=== PATIENT | female | born 1965 | race Caucasian/White ===

== ENCOUNTER 2017-11-18 18:00 | Emergency (ER) | payer OTHER ==
[~2017-11-18] VITALS: Ht 157.5 cm; Wt 76.2 kg
[2017-11-18 18:09] VITALS: TEMP 37.3; Ht 157.5 cm; Wt 76.2 kg
--- NOTE | 2017-11-18 18:29 | EMERGENCY ROOM VISIT NOTE ---
History Report prepared by Dylan: Gilbert Islas Under the Supervision of: Dr. Jerald Murphy M.D. First contact with patient: 18:15 Chief Complaint: ARM PAIN Stated Complaint: LEFT ARM/SHOULDER PAIN History of Present Illness The patient is a 52 year old white female with no past medical history who presents to the Emergency Room with complaints of persistent pain in the left shoulder that she has been experiencing for the past two weeks. She states that the pain is "sharp" the majority of the time. The patient mentioned that she was experiencing general cold symptoms two weeks ago, and her shoulder pain has persisted since. Her shoulder pain radiates up into the left side of her neck, and down into her left elbow. Sitting up and allowing the left arm to hand down worsens the pain, and laying flat improves the pain. She is a hairstylist, and works with her hands all day. The patient also made note that she has been having some shortness of breath recently. She noted that she is not able to "Catch her breath through her nose." This dyspnea is not worsened or influenced by waking around. Source of History: patient Onset: Two weeks Position: shoulder (left) Quality: sharp Timing: other (Persistent) Modifying Factors (Worsening): other (Sitting up) Modifying Factors (Relieving): other (Laying flat) Associated Symptoms: + SOB Review of Systems See HPI for pertinent positives and negatives. A total of ten systems were reviewed and were otherwise negative. Past Medical & Surgical Medical Problems: (1) Restless leg syndrome Restless leg syndrome Family History Diabetes mellitus Heart disease Hypertension Kidney disease Kidney stones Lung disease Social History Smoking Status: Former Smoker Drug Use: none Marital Status: Housing Status: lives with significant other Occupation Status: employed Current/Historical Medications Scheduled Ropinirole (Requip), 2 MG PO DAILY Tramadol Hcl (Ultram), 50 MG PO Q8H Allergies Coded Allergies: Diphenhydramine (Unverified Adverse Reaction, Intermediate, REVERSE EFFECTS, 11/18/17) Physical Exam Vital Signs Date Time Temp Pulse Resp B/P (MAP) Pulse Ox O2 Delivery O2 Flow Rate FiO2 11/18/17 20:09 80 18 144/100 97 Room Air 11/18/17 19:15 66 11/18/17 18:57 98 11/18/17 18:09 37.3 83 17 152/90 98 Room Air Physical Exam GENERAL: Awake, alert, well-appearing, NAD HENT: Normocephalic, atraumatic. EYES: Normal conjunctiva. Sclera non-icteric. NECK: Supple. No nuchal rigidity. FROM. RESPIRATORY: CTAB, no rhonchi, wheezing, crackles CARDIAC: RRR, no MRG ABDOMEN: Soft, NTND, BS+ MSK: No chest wall TTP, no LE edema. There is TTP at the AC joint. There is mild TTP at the proximal bicep tendon. No change in discomfort with internal/ external rotation or Abduction/adduction. Negative empty can test. There was no erythema or edema of the joint. NEURO: 5/5 strength, good radial pulse, no sensory deficit. GCS 15, CN 2-12 intact, moves all 4s on command SKIN: No rash or jaundice noted. Medical Decision & Procedures ER Provider Diagnostic Interpretation: Radiology results as stated below per my review and radiologist interpretation: SINGLE VIEW CHEST CLINICAL HISTORY: Atypical chest pain. FINDINGS: An AP, portable, upright chest radiograph is obtained. No prior studies are available for comparison at the time of dictation. The examination is degraded by portable technique and patient rotation. The cardiomediastinal silhouette is top normal for projection. The lungs and pleural spaces are clear. No pneumothorax is seen. The skeletal structures appear osteopenic. The bony thorax is grossly intact. IMPRESSION: No active disease in the chest. Electronically signed by: Blair Verdin M.D. 11/18/2017 7:30 PM Dictated Date/Time: 11/18/2017 7:29 PM LEFT SHOULDER 3 VIEWS CLINICAL HISTORY: Left shoulder pain. FINDINGS: 3 views of the left shoulder are obtained. No prior studies are available for comparison at the time of dictation. The skeletal structures are osteopenic. No fracture or dislocation is seen. Mild productive degenerative change is identified at the acromioclavicular joint. The overlying soft tissues are within normal limits. The imaged left upper lobe lung parenchyma appears clear. IMPRESSION: No acute bony abnormality is seen in the left shoulder. Electronically signed by: Blair Verdin M.D. 11/18/2017 7:31 PM Dictated Date/Time: 11/18/2017 7:30 PM Laboratory Results 11/18/17 19:00 Red Blood Count 4.47, Mean Corpuscular Volume 88.6, Mean Corpuscular Hemoglobin 30.0, Mean Corpuscular Hemoglobin Concent 33.8, Mean Platelet Volume 10.1, Neutrophils (%) (Auto) 51.1, Lymphocytes (%) (Auto) 41.3, Monocytes (%) (Auto) 6.1, Eosinophils (%) (Auto) 1.3, Basophils (%) (Auto) 0.1, Neutrophils # (Auto) 3.66, Lymphocytes # (Auto) 2.96, Monocytes # (Auto) 0.44, Eosinophils # (Auto) 0.09, Basophils # (Auto) 0.01 11/18/17 19:00 Test 11/18/17 19:00 White Blood Count 7.17 K/uL (4.8-10.8) Red Blood Count 4.47 M/uL (4.2-5.4) Hemoglobin 13.4 g/dL (12.0-16.0) Hematocrit 39.6 % (37-47) Mean Corpuscular Volume 88.6 fL (80-100) Mean Corpuscular Hemoglobin 30.0 pg (25-34) Mean Corpuscular Hemoglobin Concent 33.8 g/dl (32-36) Platelet Count 235 K/uL (130-400) Mean Platelet Volume 10.1 fL (7.4-10.4) Neutrophils (%) (Auto) 51.1 % Lymphocytes (%) (Auto) 41.3 % Monocytes (%) (Auto) 6.1 % Eosinophils (%) (Auto) 1.3 % Basophils (%) (Auto) 0.1 % Neutrophils # (Auto) 3.66 K/uL (1.4-6.5) Lymphocytes # (Auto) 2.96 K/uL (1.2-3.4) Monocytes # (Auto) 0.44 K/uL (0.11-0.59) Eosinophils # (Auto) 0.09 K/uL (0-0.5) Basophils # (Auto) 0.01 K/uL (0-0.2) RDW Standard Deviation 43.7 fL (36.4-46.3) RDW Coefficient of Variation 13.5 % (11.5-14.5) Immature Granulocyte % (Auto) 0.1 % Immature Granulocyte # (Auto) 0.01 K/uL (0.00-0.02) Prothrombin Time 10.0 SECONDS (9.0-12.0) Prothromb Time International Ratio 1.0 (0.9-1.1) Activated Partial Thromboplast Time 24.2 SECONDS (21.0-31.0) Partial Thromboplastin Ratio 0.9 Anion Gap 10.0 mmol/L (3-11) Est Creatinine Clear Calc Drug Dose 92.8 ml/min Estimated GFR () 116.3 Estimated GFR (Non- 100.4 BUN/Creatinine Ratio 20.2 (10-20) Calcium Level 9.3 mg/dl (8.5-10.1) Troponin I < 0.015 ng/ml (0-0.045) Laboratory results reviewed by me Medications Administered Medications (Trade) Dose Ordered Sig/Mary Route Start Time Stop Time Status Last Admin Dose Admin Ketorolac Tromethamine (Toradol Inj) 30 mg NOW STAT IV 11/18/17 18:34 11/18/17 18:37 DC 11/18/17 19:10 30 MG Acetaminophen (Tylenol Tab) 1,000 mg NOW STAT PO 11/18/17 18:34 11/18/17 18:37 DC 11/18/17 19:09 1,000 MG Cyclobenzaprine HCl (Flexeril Tab) 5 mg ONE STAT PO 11/18/17 18:34 11/18/17 18:37 DC 11/18/17 19:08 5 MG ECG Indication: back/shoulder pain Rate (beats per minute): 80 Rhythm: normal sinus Findings: other (Normal Intervals, normal axis, no STS changes or TWI) ED Course 1817: The patient was evaluated in room C10. A complete history and physical exam was performed. 2011: I checked on the patient at this time. 2035: I reevaluated the patient. Discussed results and discharge instructions: She verbalized understanding and agreement. The patient is ready for discharge. Medical Decision The patient is a 52 year old white female with no past medical history who presents to the Emergency Room with complaints of persistent pain in the left shoulder that she has been experiencing for the past two weeks. Differential diagnosis includes fracture, dislocation, neurovascular compromise , compartment syndrome, soft tissue injury, as well as others were entertained. Patient was seen and evaluated the bedside. Patient had been complaining of some left sided shoulder pain that been ongoing for some time. Patient had described that she is right-handed and denies any recent trauma. Patient states she had tried intermittent Motrin and Tylenol without much relief. On exam the patient has no swelling does not show any asymmetry. Patient did have some mild pain at the before meals joint as well as the proximal biceps tendon. Patient is neurovascularly intact distally. Patient did have blood work that was completed along with an EKG troponin, chest x-ray and shoulder film. EKG and troponin were added to rule out possible atypical chest pain. Patient's EKG is nonischemic and the patient had a negative troponin. Patient heart score less than 4 less likely ACS may follow up as an outpatient. Patient did discuss some shortness of breath. The patient is a PE RC of 1 given her age and is a Wells of 0. Less likely PE. Patient did have a negative chest film. I believe this may be related to some anxiety as the patient is very fixated on her shoulder pain. Patient states that after symptom control medications the patient was feeling improved. Patient was told that she may continue take his medications and follow with her PCP. If patient has persistent shoulder pain she needs to discuss further management with her PCP which may include physical therapy, exercise, injections, and/or follow up with orthopedist for more advanced imaging and possible surgical consideration. Patient was deemed suitable for outpatient follow-up and treatment at this time. Patient was given strict follow-up, discharge, and return precautions. All questions were answered. Patient was deemed suitable for outpatient follow-up at this time. Patient agreed with the plan of care and was safely discharged home. The chart was completed utilizing [employer] Speech voice recognition software. Grammatical errors, random word insertions, pronoun errors, and incomplete sentences are an occasional consequence of this system due to software limitations, ambient noise, and hardware issues. Any formal questions or concerns about the content, text, or information contained within the body of this dictation should be directly addressed to the physician for clarification. Impression Primary Impression: Shoulder pain, left Additional Impression: Tendonitis Scribe Attestation The scribe's documentation has been prepared under my direction and personally reviewed by me in its entirety. I confirm that the note above accurately reflects all work, treatment, procedures, and medical decision making performed by me. Departure Information Dispostion Home / Self-Care Prescriptions Tramadol Hcl (ULTRAM) 50 Mg Tab 50 MG PO Q8H, #12 TAB PRN PAIN Prov: Jerald Murphy M.D. 11/18/17 Referrals No Doctor, Assigned (PCP) Patient Instructions ED Shoulder Pain Stella DIAZ [facility] Additional Instructions Please return to the emergency department if you have worsening or recurrent symptoms not amenable to at-home treatment. Please call for a follow-up appointment with her primary care physician. Please take your medications as prescribed. If you have other concerns and/or complaints please feel free to also call your primary care physician's office or return the ED for further evaluation, management, and treatment. You may take 800 mg Ibuprofen every 6 hours as needed for pain with food. Consider taking a Zantac or Pepcid to help avoid GI upset. You may take tylenol 1000 mg every 6 hours as needed for pain. You may take motrin and tylenol separately or at the same time. If you are still having discomfort you may take the tramadol. Only take if you do not need to be fully alert as it may cause some sleepiness. You may apply moist heat and/or ice to the area. You may also consider Icy Hot or BenGay to the area. Please follow-up with your primary care physician to discuss further evaluation and treatment. Take your medications as prescribed. You have been examined and treated today on an emergency basis only. This is not a substitute for, or an effort to provide, complete comprehensive medical care. It is impossible to recognize and treat all injuries or illnesses in a single emergency department visit. It is therefore important that you follow up closely with [facility], your PCP, and/or your specialist(s). Call as soon as possible for an appointment. Thank you for your time and consideration. I look forward to speaking with you again soon. Please don't hesitate to call us if you have any questions. Problem Qualifiers Primary Impression: Shoulder pain, left Chronicity: acute Qualified Codes: M25.512 - Pain in left shoulder
[2017-11-18] MEDS ORDERED: KETOROLAC TROMETHAMINE 30 MG/ML VIAL IV STA (18:34)
[2017-11-18] MEDS ORDERED: CYCLOBENZAPRINE HCL 5 MG TAB PO STA (18:34)
[2017-11-18] MEDS ORDERED: ACETAMINOPHEN 500 MG TAB PO STA (18:34)
[2017-11-18] MEDS ORDERED: ROPI2TAB6 PO (18:47)
[2017-11-18 18:57] VITALS: O2SAT 98
[2017-11-18 19:14] LABS: BASO % 0.1 %; BASO ABS # 0.01 K/uL (0-0.2); EOS % 1.3 %; EOS ABS # 0.09 K/uL (0-0.5); HEMATOCRIT 39.6 % (37-47); HEMOGLOBIN 13.4 g/dL (12.0-16.0); IG# 0.01 K/uL (0.00-0.02); LYMPH % 41.3 %; LYMPH ABS # 2.96 K/uL (1.2-3.4); MEAN CELL VOLUME 88.6 fL (80-100); MEAN CORPUSCULAR HGB CONC 33.8 g/dl (32-36); MEAN PLATELET VOLUME 10.1 fL (7.4-10.4); MONO % 6.1 %; MONO ABS # 0.44 K/uL (0.11-0.59); NEUT % 51.1 %; NEUT ABS # 3.66 K/uL (1.4-6.5); PLATELET COUNT 235 K/uL (130-400); RED CELL DISTRIBUTION WIDTH CV 13.5 % (11.5-14.5); RED CELL DISTRIBUTION WIDTH SD 43.7 fL (36.4-46.3); WHITE BLOOD COUNT 7.17 K/uL (4.8-10.8)
[2017-11-18 19:29] LABS: PTT PATIENT 24.2 SECONDS (21.0-31.0)
[2017-11-18 19:30] LABS: BLOOD UREA NITROGEN 14 mg/dl (7-18); CALCIUM 9.3 mg/dl (8.5-10.1); CARBON DIOXIDE 24 mmol/L (21-32); CREATININE 0.67 mg/dl (0.60-1.20); GLUCOSE 100 mg/dl (70-99); SODIUM 140 mmol/L (136-145)
--- NOTE | 2017-11-18 19:31 | DIAGNOSTIC IMAGING REPORT ---
SINGLE VIEW CHEST CLINICAL HISTORY: Atypical chest pain. FINDINGS: An AP, portable, upright chest radiograph is obtained. No prior studies are available for comparison at the time of dictation. The examination is degraded by portable technique and patient rotation. The cardiomediastinal silhouette is top normal for projection. The lungs and pleural spaces are clear. No pneumothorax is seen. The skeletal structures appear osteopenic. The bony thorax is grossly intact. IMPRESSION: No active disease in the chest. Electronically signed by: Blair Verdin M.D. 11/18/2017 7:30 PM Dictated Date/Time: 11/18/2017 7:29 PM
--- NOTE | 2017-11-18 19:32 | DIAGNOSTIC IMAGING REPORT ---
LEFT SHOULDER 3 VIEWS CLINICAL HISTORY: Left shoulder pain. FINDINGS: 3 views of the left shoulder are obtained. No prior studies are available for comparison at the time of dictation. The skeletal structures are osteopenic. No fracture or dislocation is seen. Mild productive degenerative change is identified at the acromioclavicular joint. The overlying soft tissues are within normal limits. The imaged left upper lobe lung parenchyma appears clear. IMPRESSION: No acute bony abnormality is seen in the left shoulder. Electronically signed by: Blair Verdin M.D. 11/18/2017 7:31 PM Dictated Date/Time: 11/18/2017 7:30 PM
[2017-11-18] MEDS ORDERED: TRAM-453 PO (20:35)
[2017-11-18 20:55] VITALS: BP 121/81; PULSE 76; O2SAT 95
== END 2017-11-18 20:55 | disposition home or self-care (01) ==
LOC: C.EDB 18:02 → C.EDC 20:55
DX: M75.92 Shoulder lesion, unspecified, left shoulder (principal); M25.512 Pain in left shoulder; M79.602 Pain in left arm; Z87.891 Personal history of nicotine dependence

== ENCOUNTER → 2018-01-06 | Outpatient (CLI) | payer OTHER ==
[~2018-01-06] MED LIST: ROPI2TAB6 PO; TRAM-453 PO
--- NOTE | 2018-01-06 10:45 | DIAGNOSTIC IMAGING REPORT ---
GALLBLADDER-ABD LIMITED CLINICAL HISTORY: R10.84 Generalized postprandial abdominal [id number] pain TECHNIQUE: Ultrasound COMPARISON STUDY: None FINDINGS: Normal gallbladder. Common bile duct mildly distended at 9 mm. And hepatic ducts are unremarkable. Liver is uniform. Pancreas is unremarkable. Right kidney is negative for hydronephrosis. 7 mm benign angiomyolipoma lower pole. No evidence for abnormal cortical echogenicity. IMPRESSION: Mild prominence of the extra hepatic common bile duct at 9 mm. Otherwise negative study. The above report was generated using voice recognition software. It may contain grammatical, syntax or spelling errors. Electronically signed by: Lukasz De La Paz M.D. 01/06/2018 10:44 AM Dictated Date/Time: 01/06/2018 10:43 AM
== END | disposition home or self-care (01) ==
LOC: C.ULTR 09:55
PROVIDERS: ATTEND Physician Assistant
DX: R10.84 Generalized abdominal pain (principal)